=== PATIENT | male | born 1985 | race Two or more races ===

== ENCOUNTER 2020-08-03 05:45 | Emergency (ER) | payer BC, OTHER ==
[2020-08-03 06:57] VITALS: PULSE 74; TEMP 99.4; BMI 25.0
[2020-08-03] MEDS ORDERED: PROPOFOL 20 ML ONE (08:39)
[2020-08-03 12:32] VITALS: BP 120/80
== END 2020-08-03 11:05 | disposition home or self-care (01) ==
LOC: JER 05:45
DX: S43.015A Anterior dislocation of left humerus, initial encounter (principal)
CPT/HCPCS: 70450-TC; 73030-TC-LT-FY; 99285-25

== ENCOUNTER 2020-08-31 05:54 | Day surgery (SDC) | payer OTHER ==
[2020-08-27 17:07] VITALS: BMI 21.7
[2020-08-31] MEDS ORDERED: MIDAZOLAM HCL 2 MG/2 ML SINGLE DOSE VIAL ONE ×2 (06:27→08:29)
[2020-08-31] MEDS ORDERED: ROPIVACAINE HCL 0.5% 30ML VIAL ONE (06:27)
[2020-08-31] MEDS ORDERED: PROPOFOL 20 ML ONE (07:05)
[2020-08-31] MEDS ORDERED: SUCCINYLCHOLINE CHLORIDE 200 MG/10 ML SYRINGE ONE (07:05)
[2020-08-31] MEDS ORDERED: EPINEPHrine 1:1,000 1 MG/1 ML - 30ML VIAL (INJECTION) ONE (07:22)
[2020-08-31] MEDS ORDERED: ceFAZolin SODIUM 1 GM VIAL ONE (08:33)
[2020-08-31] MEDS ORDERED: oxyCODONE HCL 5 MG TABLET PO PRN ×2 (10:31)
[2020-08-31] MEDS ORDERED: ONDANSETRON 4 MG/2 ML VIAL IVPUSH PRN (10:31)
[2020-08-31] MEDS ORDERED: LACTATED RINGERS SOLUTION 1,000 ML IV SCH (10:45)
[2020-08-31 11:34] VITALS: TEMP 98.1
[2020-08-31 12:19] VITALS: BP 135/73; PULSE 48
== END 2020-08-31 12:15 | disposition home or self-care (01) ==
LOC: FASU 05:54
PROVIDERS: ATTEND Orthopaedic Surgery
PROC: 0RNK4ZZ Release Left Shoulder Joint, Percutaneous Endoscopic Approach (ICD-10-PCS; 2020-08-31)
PROC: 0PBB4ZZ Excision of Left Clavicle, Percutaneous Endoscopic Approach (ICD-10-PCS; 2020-08-31)
PROC: 0RNK4ZZ Release Left Shoulder Joint, Percutaneous Endoscopic Approach (ICD-10-PCS; 2020-08-31)
PROC: 0RQK4ZZ Repair Left Shoulder Joint, Percutaneous Endoscopic Approach (ICD-10-PCS; principal; 2020-08-31 08:40)
DX: S43.432A Superior glenoid labrum lesion of left shoulder, initial encounter (principal); M75.42 Impingement syndrome of left shoulder; M75.02 Adhesive capsulitis of left shoulder; M25.312 Other instability, left shoulder; X58.XXXA Exposure to other specified factors, initial encounter; Y93.9 Activity, unspecified; Y92.9 Unspecified place or not applicable; Y99.9 Unspecified external cause status
CPT/HCPCS: 88304-TC; 94760

== ENCOUNTER 2021-11-03 08:06 | Emergency (ER) | payer OTHER ==
[2021-11-03 08:10] VITALS: BP 104/62; PULSE 84; TEMP 98; BMI 24.2
[2021-11-03 09:31] LABS: EPI CELLS 3 /uL (0-25.1); HYALINE CASTS 1 /uL (0-3.1); PH,URINE 6.5 (5.0-8.0); URINE APPEARANCE CLOUDY; URINE BACTERIA 4 /uL (0-1359); URINE BILIRUBIN NEGATIVE (NEGATIVE); URINE COLOR YELLOW; URINE GLUCOSE (UA) NEGATIVE (NEGATIVE); URINE KETONE NEGATIVE (NEGATIVE); URINE LEUK ESTERASE TRACE (NEGATIVE); URINE NITRITE NEGATIVE (NEGATIVE); URINE PROTEIN NEGATIVE (NEGATIVE); URINE RBC 5219 /uL (0-23.9); URINE UROBILINOGEN 0.2 mg/dL (0.2-1.0); URINE WBC 14 /uL (0-25.8)
[2021-11-03 10:45] LABS: BASO % 0.7 % (0-2.0); HEMATOCRIT 40.5 % (35.4-49); LYMPH % 40.4 % (8-40); MCH 32.4 pg (25.7-33.7); MCHC 34.5 g/dl (32.0-35.9); MONO % 9.4 % (3.8-10.2); NEUT % 46.5 % (42.8-82.8); PLATELET COUNT 199 10^3/uL (134-434); RBC 4.32 M/mm3 (4.00-5.60); RDW 14.6 % (11.9-15.9); WHITE BLOOD COUNT 4.7 K/mm3 (4.0-10.0)
[2021-11-03 10:52] LABS: INR 0.98 (0.83-1.09); PROTHROMBIN TIME (PATIENT) 11.3 SEC (9.7-13.0)
[2021-11-03 11:11] LABS: CHLORIDE 104 mmol/L (98-107); SODIUM 141 mmol/L (136-145)
[2021-11-03 11:14] LABS: ALBUMIN 3.6 g/dl (3.4-5.0); ANION GAP 5 MMOL/L (8-16); BLOOD UREA NITROGEN 12.9 mg/dL (7-18); CALCIUM 8.8 mg/dL (8.5-10.1); CO2 31 mmol/L (21-32); GLUCOSE,RANDOM 108 mg/dL (74-106)
[2021-11-03 11:17] LABS: CREATININE 1.1 mg/dL (0.55-1.3); SGPT/ALT 63 U/L (13-61)
[2021-11-03 11:18] LABS: SGOT/AST 36 U/L (15-37)
[2021-11-03 11:19] LABS: BILIRUBIN,TOTAL 0.2 mg/dL (0.2-1); TOT PROT 7.3 g/dl (6.4-8.2)
[2021-11-03 11:22] LABS: ALK PHOS 95 U/L (45-117)
== END 2021-11-03 13:35 | disposition home or self-care (01) ==
LOC: JER 08:06 → JERFT 08:06 → JER 13:35
DX: N13.30 Unspecified hydronephrosis (principal); K76.89 Other specified diseases of liver; R31.9 Hematuria, unspecified
CPT/HCPCS: 36415; 74177-TC; 76775-TC; 80053; 81003; 82550; 82553; 85025; 85610; 87086; 87491; 87591; 99285-25; Q9967